=== PATIENT | female | born 1960 | race Caucasian/White ===

== ENCOUNTER 2017-01-10 09:07 | Emergency (ER) | payer BC ==
[~2017-01-10] VITALS: Ht 172.7 cm; Wt 67.4 kg
[2017-01-10 09:11] VITALS: TEMP 37.4; Ht 172.7 cm; Wt 67.4 kg
[2017-01-10] MEDS ORDERED: RANI300T2 PO (09:46)
[2017-01-10] MEDS ORDERED: RIZA10TA18 PO (09:46)
[2017-01-10] MEDS ORDERED: SODIUM CHLORIDE 0.9% 1000ML 1,000 ML IV STA (09:48)
[2017-01-10] MEDS ORDERED: OPTIRAY 320 IV PRN (10:00)
[2017-01-10 10:08] LABS: BASO % 0.2 %; BASO ABS # 0.03 K/uL (0-0.2); COMPLETE YES; EOS % 0.2 %; HEMATOCRIT 42.2 % (37-47); IG% 0.3 %; LYMPH % 13.3 %; LYMPH ABS # 2.04 K/uL (1.2-3.4); MEAN CELL VOLUME 90.4 fL (80-100); MEAN CORPUSCULAR HGB CONC 34.4 g/dl (32-36); MEAN PLATELET VOLUME 10.3 fL (7.4-10.4); MONO % 7.9 %; NEUT % 78.1 %; PLATELET COUNT 322 K/uL (130-400); RED BLOOD COUNT 4.67 M/uL (4.2-5.4); WHITE BLOOD COUNT 15.39 K/uL (4.8-10.8)
[2017-01-10 10:15] LABS: INR 0.9 (0.9-1.1); PARTIAL THROMBOPLASTIN RATIO 0.9
[2017-01-10 10:17] LABS: BUN/CREATININE RATIO 17.5 (10-20); CALCIUM 9.4 mg/dl (8.5-10.1); CREATININE 1.18 mg/dl (0.60-1.20); POTASSIUM 3.4 mmol/L (3.5-5.1)
--- NOTE | 2017-01-10 10:46 | DIAGNOSTIC IMAGING REPORT ---
ABD/PELVIS IV CONTRAST ONLY CT DOSE: 397.08 mGy.cm HISTORY: Nausea. Vomiting. vomiting, abd pain, hematochezia TECHNIQUE: Multiaxial CT images of the abdomen and pelvis were performed following the use of intravenous contrast. A dose lowering technique was utilized adhering to the principles of ALARA. COMPARISON STUDY: None. FINDINGS: Lung bases are clear. Liver is uniform throughout. Gallbladder is negative for distention. Spleen is uniform. The adrenal glands are unremarkable. Kidneys are considered negative for hydronephrosis. Bowel pattern is remarkable for wall thickening with pericolonic infiltrative change involving the entirety of the cecum, sigmoid, as well as descending colon. A moderate wall thickening is identified in the transverse and a sending colon. There is no evidence for abscess collection or obstruction. There is no significant pelvic adenopathy. Bladder is midline. There is no evidence pneumatosis. IMPRESSION: 1. Generalized colonic wall thickening most prominent in the descending and sigmoid regions. 2. No evidence for drainable abscess or collection. 3. The appearance is most consistent with that of a nonspecific colitis. The above report was generated using voice recognition software. It may contain grammatical, syntax or spelling errors. Electronically signed by: Gautam Metz M.D. 01/10/2017 10:45 AM Dictated Date/Time: 01/10/2017 10:42 AM
--- NOTE | 2017-01-10 11:00 | EMERGENCY ROOM VISIT NOTE ---
History Report prepared by Beverley: Edgar Villa Under the Supervision of: Dr. Griffin Clark M.D. First contact with patient: 09:42 Chief Complaint: GI ASSESSMENT Stated Complaint: BLOOD IN STOOL ALL NIGHT Nursing Triage Summary: Pt c/o n/v/d since 7pm last night, sweats and chills, then noticed blood in stool. Believe it's all blood now. Red in color. History of Present Illness The patient is a 56 year old female who presents to the Emergency Room with complaints of hematochezia that began yesterday evening. Since yesterday, she has been experiencing chills, nausea, vomiting, diarrhea, and diaphoresis. While her diarrhea progressed, she began to have bleeding with defecation. Before she has to have bowel movement, she has moderate abdominal cramping. She has to defecate about every 1 to 2 hours. She denies any recent travel, sick contacts, or recent antibiotic use. Pt denies LOC, headache, fevers, visual changes, neck pain, chest pain, breathing difficulties, back pain, melena, urinary symptoms, numbness, weakness, lymphadenopathy, rash, leg swelling, or other complaints. Source of History: patient Onset: yesterday evening Position: other (GI) Symptom Intensity: Multiple episodes Quality: other (Hematochezia) Timing: intermittent Associated Symptoms: + chills, + diaphoresis, + nausea, + vomiting, + abdominal pain (cramping intermittently), + diarrhea Review of Systems See HPI for pertinent positives and negatives. A total of ten systems were reviewed and were otherwise negative. Past Medical & Surgical Medical Problems: (1) GERD (gastroesophageal reflux disease) (2) Migraine Family History Omitted secondary to the patient's age. Social History Smoking Status: Never Smoker Smokeless Tobacco Use: No Drug Use: none Occupation Status: employed Current/Historical Medications Scheduled Ranitidine (Zantac), 300 MG PO QAM Scheduled PRN Rizatriptan Benzoate (Maxalt), 10 MG PO for Migraine Allergies Coded Allergies: No Known Allergies (Unverified , 01/10/17) Physical Exam Vital Signs Date Time Temp Pulse Resp B/P (MAP) Pulse Ox O2 Delivery O2 Flow Rate FiO2 01/10/17 16:07 98 18 125/76 97 01/10/17 14:40 87 18 121/66 98 01/10/17 13:18 89 16 115/68 98 01/10/17 13:06 92 01/10/17 11:07 93 18 127/88 99 01/10/17 10:01 99 01/10/17 09:11 37.4 113 16 155/90 98 Room Air Physical Exam GENERAL: Awake, alert, well-appearing, in no distress HENT: Normocephalic, atraumatic. Oropharynx unremarkable. EYES: Normal conjunctiva. Sclera non-icteric. NECK: Supple. No nuchal rigidity. FROM. No JVD. RESPIRATORY: Clear to auscultation. CARDIAC: Regular rate, normal rhythm. Extremities warm and well perfused. Pulses equal. ABDOMEN: Soft, non-distended. Minimal LUQ and mild LLQ tenderness to palpation. No rebound or guarding. No masses. RECTAL: Deferred. MUSCULOSKELETAL: Chest examination reveals no tenderness. The back is symmetrical on inspection without obvious abnormality. There is no CVA tenderness to palpation. No joint edema. LOWER EXTREMITIES: Calves are equal size bilaterally and non-tender. No edema. No discoloration. NEURO: Normal sensorium. No sensory or motor deficits noted. SKIN: No rash or jaundice noted. Medical Decision & Procedures ER Provider Diagnostic Interpretation: Radiology results as stated below per my review and radiologist interpretation: ABD/PELVIS IV CONTRAST ONLY CT DOSE: 397.08 mGy.cm HISTORY: Nausea. Vomiting. vomiting, abd pain, hematochezia TECHNIQUE: Multiaxial CT images of the abdomen and pelvis were performed following the use of intravenous contrast. A dose lowering technique was utilized adhering to the principles of ALARA. COMPARISON STUDY: None. FINDINGS: Lung bases are clear. Liver is uniform throughout. Gallbladder is negative for distention. Spleen is uniform. The adrenal glands are unremarkable. Kidneys are considered negative for hydronephrosis. Bowel pattern is remarkable for wall thickening with pericolonic infiltrative change involving the entirety of the cecum, sigmoid, as well as descending colon. A moderate wall thickening is identified in the transverse and a sending colon. There is no evidence for abscess collection or obstruction. There is no significant pelvic adenopathy. Bladder is midline. There is no evidence pneumatosis. IMPRESSION: 1. Generalized colonic wall thickening most prominent in the descending and sigmoid regions. 2. No evidence for drainable abscess or collection. 3. The appearance is most consistent with that of a nonspecific colitis. The above report was generated using voice recognition software. It may contain grammatical, syntax or spelling errors. Electronically signed by: Gautam Metz M.D. 01/10/2017 10:45 AM Dictated Date/Time: 01/10/2017 10:42 AM Laboratory Results 01/10/17 09:20 Red Blood Count 4.67, Mean Corpuscular Volume 90.4, Mean Corpuscular Hemoglobin 31.0, Mean Corpuscular Hemoglobin Concent 34.4, Mean Platelet Volume 10.3, Neutrophils (%) (Auto) 78.1, Lymphocytes (%) (Auto) 13.3, Monocytes (%) (Auto) 7.9, Eosinophils (%) (Auto) 0.2, Basophils (%) (Auto) 0.2, Neutrophils # (Auto) 12.03, Lymphocytes # (Auto) 2.04, Monocytes # (Auto) 1.22, Eosinophils # (Auto) 0.03, Basophils # (Auto) 0.03 01/10/17 09:20 Test 01/10/17 09:20 01/10/17 10:05 White Blood Count 15.39 K/uL (4.8-10.8) Red Blood Count 4.67 M/uL (4.2-5.4) Hemoglobin 14.5 g/dL (12.0-16.0) Hematocrit 42.2 % (37-47) Mean Corpuscular Volume 90.4 fL (80-100) Mean Corpuscular Hemoglobin 31.0 pg (25-34) Mean Corpuscular Hemoglobin Concent 34.4 g/dl (32-36) Platelet Count 322 K/uL (130-400) Mean Platelet Volume 10.3 fL (7.4-10.4) Neutrophils (%) (Auto) 78.1 % Lymphocytes (%) (Auto) 13.3 % Monocytes (%) (Auto) 7.9 % Eosinophils (%) (Auto) 0.2 % Basophils (%) (Auto) 0.2 % Neutrophils # (Auto) 12.03 K/uL (1.4-6.5) Lymphocytes # (Auto) 2.04 K/uL (1.2-3.4) Monocytes # (Auto) 1.22 K/uL (0.11-0.59) Eosinophils # (Auto) 0.03 K/uL (0-0.5) Basophils # (Auto) 0.03 K/uL (0-0.2) RDW Standard Deviation 42.6 fL (36.4-46.3) RDW Coefficient of Variation 13.0 % (11.5-14.5) Immature Granulocyte % (Auto) 0.3 % Immature Granulocyte # (Auto) 0.04 K/uL (0.00-0.02) Prothrombin Time 10.0 SECONDS (9.0-12.0) Prothromb Time International Ratio 0.9 (0.9-1.1) Activated Partial Thromboplast Time 24.3 SECONDS (21.0-31.0) Partial Thromboplastin Ratio 0.9 Anion Gap 7.0 mmol/L (3-11) Est Creatinine Clear Calc Drug Dose 52.4 ml/min Estimated GFR () 58.9 Estimated GFR (Non- 50.8 BUN/Creatinine Ratio 17.5 (10-20) Calcium Level 9.4 mg/dl (8.5-10.1) Total Bilirubin 0.6 mg/dl (0.2-1) Direct Bilirubin 0.1 mg/dl (0-0.2) Aspartate Amino Transf (AST/SGOT) 31 U/L (15-37) Alanine Aminotransferase (ALT/SGPT) 39 U/L (12-78) Alkaline Phosphatase 148 U/L (45-117) Total Protein 8.4 gm/dl (6.4-8.2) Albumin 4.5 gm/dl (3.4-5.0) Lipase 128 U/L (73-393) Urine Color YELLOW Urine Appearance CLEAR (CLEAR) Urine pH 5.0 (4.5-7.5) Urine Specific [place] 1.015 (1.000-1.030) Urine Protein NEG (NEG) Urine Glucose (UA) NEG (NEG) Urine Ketones NEG (NEG) Urine Occult Blood TRACE (NEG) Urine Nitrite NEG (NEG) Urine Bilirubin NEG (NEG) Urine Urobilinogen NEG (NEG) Urine Leukocyte Esterase NEG (NEG) Urine WBC (Auto) 1-5 /hpf (0-5) Urine RBC (Auto) 0-4 /hpf (0-4) Urine Hyaline Casts (Auto) 0 /lpf (0-5) Urine Epithelial Cells (Auto) 0-5 /lpf (0-5) Urine Bacteria (Auto) NEG (NEG) Date/Time Source Procedure Growth Status 01/10/17 12:50 Stool C.difficile Toxin B Gene (PCR) - Final No C. difficile toxin B gene detected Complete Laboratory results reviewed by me Medications Administered Medications (Trade) Dose Ordered Sig/Dwayne Route Start Time Stop Time Status Last Admin Dose Admin Sodium Chloride 1,000 ml @ 999 mls/hr Q1H1M STAT IV 01/10/17 09:48 01/10/17 10:48 DC 01/10/17 10:01 999 MLS/HR Ondansetron HCl (ZOFRAN ODT 4MG Home Pack) 1 homepack UD ONCE PO 01/10/17 16:00 01/10/17 16:01 DC 01/10/17 16:07 1 HOMEPACK ED Course 0942: The patient was evaluated in room B9. A complete history and physical exam was performed. 0948: Ordered Sodium Chloride 1000 ml @ 999 mls/hr IV 1051: She is working on giving us a stool sample. 1444: Her C Diff laboratory test is pending. She is doing well. 1600: Ordered Ondansetron HCl 1 homepack PO 1605: I reevaluated the patient. Discussed results and discharge instructions: She verbalized understanding and agreement. The patient is ready for discharge. Medical Decision Triage Nursing notes reviewed. The patient's presentation and history were concerning for nausea, vomiting, diarrhea and hematochezia Etiologies such as gastroenteritis, food borne illness, infections, obstruction , pancreatitis, appendicitis, diverticulitis, inflammatory bowel disease, GI bleed, biliary pathology, toxicologic as well as others were entertained. The patient was evaluated. Clinically she was doing well although had some mild tachycardia. She had blood work obtained. Stool sample was ordered. The patient was hydrated. The patient had a mild leukocytosis on CBC but no significant anemia. Chemistry panel was unremarkable. She underwent CT imaging which revealed findings consistent with a colitis. Stool culture pending. C. difficile negative. I did consult with [facility]. The patient will be followed up in the office. Conservative management was recommended. The patient was given Zofran in case any additional nausea or vomiting occur. SHe declined any analgesia. I gave my usual and customary discussion regarding this issue. By the evaluation outlined above other emergent etiologies such as those listed in the differential, as well as others, were deemed relatively unlikely. The patient was educated about the findings as listed above. All questions were answered and the patient was pleased with the treatment. Return instructions were outlined and the patient was discharged in stable condition. The patient was referred to GI for follow-up for a recheck of the current condition. Medication Reconcilliation Current Medication List: was personally reviewed by me Blood Pressure Screening Patient's blood pressure: Normal blood pressure Impression Primary Impression: Colitis Scribe Attestation The scribe's documentation has been prepared under my direction and personally reviewed by me in its entirety. I confirm that the note above accurately reflects all work, treatment, procedures, and medical decision making performed by me. Departure Information Dispostion Home / Self-Care Referrals Kymberly Hirsch C.Zenia.N.P. (PCP) Ricki Castelan MD Forms HOME CARE DOCUMENTATION FORM, IMPORTANT VISIT INFORMATION Patient Instructions My [facility] Additional Instructions Stool culture is pending. Results should be available next 48-72 hours. Come back to the Emergency Room at [phone] regarding the results. Avoid dairy products until symptoms resolve. Zofran 4 mg oral dissolving tablets: take one tablet and allow it to melt in your mouth every 4 hours as needed for nausea. Ibuprofen(Motrin, Advil) may be used for fever or pain. Use 600mg every six hours as needed. Take with food. Avoid using more than 2400mg in a 24 hour period. Do not use 2400mg per day for more than three consecutive days without physician direction. Prolonged inappropriate use can lead to stomach upset or ulcers. (AND/OR) Acetaminophen(Tylenol) may be used for fever or pain. Use 1000mg every six hours as needed. Avoid using more than 4000mg in a 24 hour period. Rest and drink plenty of fluids as tolerated. Slow sips of water or sports drinks are recommended instead of large amounts all at once. Continue current medications. Once your stomach is settled start with a clear liquid diet (jello, soup broth, etc.) and then advance as tolerated. You should avoid full, heavy meals for about 24 hrs from the time your symptoms resolved. Return to the ER immediately for worsening or persistent abdominal pain, vomiting, fevers, chest pains, difficulty breathing, black or bloody stools, worsening of your condition, or as needed. Follow up with your primary physician in 3 days for a recheck of your current condition. You want you should receive a call from [facility] gastro[facility]ology on Friday. If you do not hear from them before lunchtime, call the office at the number listed below under Dr. castelan. Tell the company secretary that the on-call team was made aware and wants you to have a follow-up appointment.
[2017-01-10 14:06] LABS: URINE APPEARANCE CLEAR (CLEAR); URINE BILIRUBIN NEG (NEG); URINE COLOR YELLOW; URINE EPITHELIAL CELL AUTO 0-5 /lpf (0-5); URINE NITRITE NEG (NEG); URINE SPECIFIC GRAVITY 1.015 (1.000-1.030); UROBILINOGEN NEG (NEG); ZZUR CULT IF INDIC CLEAN CATCH NO
[2017-01-10 14:14] LABS: REVIEW REQ? NO
[2017-01-10 14:15] LABS: MANUAL MICROSCOPIC REQUIRED? NO
[2017-01-10] MEDS ORDERED: ONDANSETRON HOME PACK 4MG OD TAB PO ONE (16:00)
[2017-01-10 16:07] VITALS: BP 125/76; PULSE 98; O2SAT 97
== END 2017-01-10 16:10 | disposition home or self-care (01) ==
LOC: EDSEX 09:09 → C.EDB 09:09
DX: K52.9 Noninfective gastroenteritis and colitis, unspecified (principal); K21.9 Gastro-esophageal reflux disease without esophagitis; R00.0 Tachycardia, unspecified; Z79.899 Other long term (current) drug therapy